=== PATIENT | male | born 1950 | race Caucasian/White ===

== ENCOUNTER 2018-04-06 01:57 | Outpatient (RCR) | payer MEDICARE, OTHER, SELFPAY ==
[2018-04-06] MEDS: Normal Saline Flush 10 ML SYR IVP (08:15)
[2018-04-06 08:30] LABS: Abs Immature Grans 0.12 k/cumm (0.0-0.09); Absolute Basophil Count 0.02 k/cumm (0.0-0.2); Absolute Eosinophil Count 0.03 k/cumm (0.0-0.7); Absolute Lymphocyte Count 3.09 k/cumm (1.2-3.4); Absolute Monocyte Count 1.29 k/cumm (0.11-0.7); Basophils % 0.1; Eosinophils % 0.2; HCT 35.8 % (40.0-50.0); HGB 11.8 g/dL (13.5-17.5); Immature Grans % 0.7; Lymphocytes % 17.9; Mean Corpuscular Hemoglobin 32.3 pg (27.0-33.0); Mean Corpuscular Volume 98.1 fL (80-95); Mean Platelet Volume 9.2 fL (8.0-11.0); Monocytes % 7.5; Neutrophils % 73.6; Platelet Count 386 x1000/uL (130-400); RBC 3.65 m/cumm (4.50-6.00); RBC Distribution Width 13.7 % (11.8-14.1); White Blood Cell Count 17.25 k/cumm (4.4-10.8)
[2018-04-06 09:09] LABS: ALT 19 U/L (12-78); AST 12 U/L (15-37); Albumin 3.1 g/dL (3.4-5.0); Alkaline Phosphatase 88 U/L (46-116); Anion Gap 8.1 mmol/L (3-11); BUN 17 mg/dL (7-18); Bilirubin, Total 0.4 mg/dL (0.2-1.0); CO2 26.9 mmol/L (21.0-32.0); Calcium 8.5 mg/dL (8.5-10.1); Chloride 105 mmol/L (98-107); Glucose 88 mg/dL (70-100); Potassium 3.8 mmol/L (3.5-5.1); Sodium 140 mmol/L (136-145); T4 8.3 ug/dL (4.5-12.5); TSH 0.61 uIU/mL (0.358-3.74); Total Protein 7.1 g/dL (6.4-8.2)
[2018-04-22] MEDS: Normal Saline Flush 10 ML SYR IVP (08:13)
[2018-04-22] MEDS: Heparin 500 UNITS/5 ML SYRINGE IV (08:14)
[2018-04-22 08:24] LABS: Abs Immature Grans 0.02 k/cumm (0.0-0.09); Absolute Basophil Count 0.03 k/cumm (0.0-0.2); Absolute Eosinophil Count 0.13 k/cumm (0.0-0.7); Absolute Lymphocyte Count 2.34 k/cumm (1.2-3.4); Absolute Monocyte Count 0.75 k/cumm (0.11-0.7); Absolute Neutrophil Count 7.75 k/cumm (1.2-6.7); Basophils % 0.3; Eosinophils % 1.2; HGB 12.3 g/dL (13.5-17.5); Immature Grans % 0.2; Lymphocytes % 21.2; Mean Corp. HGB Concentration 32.4 g/dL (32.0-36.0); Mean Platelet Volume 9.5 fL (8.0-11.0); Monocytes % 6.8; Neutrophils % 70.3; Platelet Count 241 x1000/uL (130-400); RBC 3.84 m/cumm (4.50-6.00); RBC Distribution Width 14.4 % (11.8-14.1); White Blood Cell Count 11.02 k/cumm (4.4-10.8)
[2018-04-22 08:51] LABS: ALT 22 U/L (12-78); AST 15 U/L (15-37); Albumin 2.9 g/dL (3.4-5.0); Alkaline Phosphatase 78 U/L (46-116); BUN 17 mg/dL (7-18); Bilirubin, Total 0.3 mg/dL (0.2-1.0); CREATININE 1.13 mg/dL (0.70-1.30); Calcium 8.1 mg/dL (8.5-10.1); Chloride 106 mmol/L (98-107); Glucose 93 mg/dL (70-100); Potassium 3.8 mmol/L (3.5-5.1); Sodium 140 mmol/L (136-145); T4 8.1 ug/dL (4.5-12.5); TSH 1.05 uIU/mL (0.358-3.74); Total Protein 6.7 g/dL (6.4-8.2)
== END 2018-04-30 ==
LOC: INF 02:52
PROVIDERS: PCP Family Medicine; Visit Provider Internal Medicine Medical Oncology
DX: C15.5 Malignant neoplasm of lower third of esophagus (principal); E03.2 Hypothyroidism due to medicaments and other exogenous substances; Z45.2 Encounter for adjustment and management of vascular access device
CPT/HCPCS: 36591 ×2; 80053; 84436; 84443; 85025